=== PATIENT | female | born 1930 | race Two or more races ===

== ENCOUNTER → 2016-10-07 | Outpatient (CLI) | payer MEDICARE | LOC: CLAB 08:08 | PROVIDERS: ATTEND Family Medicine | DX: R21 Rash and other nonspecific skin eruption (principal); I10 Essential (primary) hypertension; G89.18 Other acute postprocedural pain; K59.00 Constipation, unspecified; G47.00 Insomnia, unspecified; D50.8 Other iron deficiency anemias; Z11.1 Encounter for screening for respiratory tuberculosis | CPT/HCPCS: 36415; 86850; 86900; 86901 ==